=== PATIENT | female | born 2000 | race Hispanic/Latino ===

== ENCOUNTER → 2023-11-04 11:42 | Outpatient (CLI) | payer BC, SELFPAY ==
--- NOTE | 2023-11-04 11:43 | DI.US.S_ITS ---
PROCEDURE: US PELVIC COMPLETE INDICATIONS: Pelvic pain/hx PCOS TECHNIQUE: Real-time scanning was performed of the pelvic organs, with image documentation. Additional endovaginal scanning was necessary due to incomplete visualization of the adnexal and endometrial structures by transabdominal scanning. COMPARISON: None. FINDINGS: Uterus: Uterus is anteverted and normal in size at 8.2 x 4.5 x 6.0 cm. The myometrium is homogeneous. The endometrium measures 16 mm combined thickness. Mild vascularity is noted within the endometrium. Ovaries: The right ovary measures 3.8 x 2.9 x 2.6 cm, with a calculated ovarian volume of 15 cc. Collapsing follicle within the right ovary measuring 1.2 cm. The left ovary measures 4.4 x 3.0 x 2.0 cm, with a calculated ovarian volume of 13.8 cc. Left para ovarian simple cyst measuring 1.2 cm. . Greater than 12 follicles can be seen in each ovary. No adnexal masses are seen. Other: No pathologic free abdominal or pelvic fluid. IMPRESSION: The endometrium is prominent measuring 16 mm. Mild vascularity is noted within the endometrium, nonspecific. Consider short-term follow-up ultrasound. Greater than 12 sub-5 mm follicular cysts bilaterally which can be associated with polycystic ovarian morphology. Collapsing follicle in the right ovary measuring 1.2 cm. Left para ovarian simple cyst measuring 1.2 cm. We strive to produce accurate, complete, and clear reports of imaging services. To assist us in improving patient care, this report was composed using standard report templates and voice recognition software. Therefore, it may contain abnormal punctuation, insertions and/or omissions. Occasional wrong-word or sound-alike substitutions may occur. Though we review the report and make efforts to correct it, we do recommend that the report be read carefully in proper context to recognize any text inaccuracies. Dictated by: Andre Zaldivar M.D. on 11/04/2023 at 14:06 Approved by: Andre Zaldivar M.D. on 11/04/2023 at 14:14
== END ==
PROVIDERS: Referring Provider Student in an Organized Health Care Education/Training Program; Visit Provider Student in an Organized Health Care Education/Training Program
DX: N83.292 Other ovarian cyst, left side (principal); R10.2 Pelvic and perineal pain; Z87.42 Personal history of other diseases of the female genital tract
CPT/HCPCS: 76830; 76856

== ENCOUNTER → 2023-12-02 09:31 | Outpatient (CLI) | payer BC, SELFPAY ==
[2023-12-02 11:13] LABS: HCG Quantitative /Beta subunit 90585 mIU/mL
== END ==
PROVIDERS: Referring Provider Student in an Organized Health Care Education/Training Program; Visit Provider Student in an Organized Health Care Education/Training Program
DX: Z32.01 Encounter for pregnancy test, result positive (principal)
CPT/HCPCS: 36415; 84702

== ENCOUNTER → 2023-12-05 15:22 | Outpatient (CLI) | payer BC, SELFPAY ==
--- NOTE | 2023-12-05 15:23 | DI.US.S_ITS ---
PROCEDURE: US OB <= 14 WEEKS FETUS INDICATIONS: dating of , unknown LMP OUTSIDE/PRIOR DATING DATA: Last menstrual period (LMP): Unknown. LMP-based estimated date of delivery (MARISSA): Unknown. First dating scan (date and location): 12/05/2023. Estimated date of delivery (MARISSA) from first dating scan: 07/09/2024. The calculations are made using the ultrasound MARISSA of 07/09/2024. TECHNIQUE: Real-time scanning was performed of the fetus and maternal pelvic organs, with image documentation. COMPARISON: None. FINDINGS: Embryo: 2.4 cm, 9 weeks 0 days Heart rate: 169 Maternal organs: Ovaries are unremarkable. IMPRESSION: Living early 1st trimester intrauterine with crown-rump length and heartbeat measuring 9 weeks 0 days. We strive to produce accurate, complete, and clear reports of imaging services. To assist us in improving patient care, this report was composed using standard report templates and voice recognition software. Therefore, it may contain abnormal punctuation, insertions and/or omissions. Occasional wrong-word or sound-alike substitutions may occur. Though we review the report and make efforts to correct it, we do recommend that the report be read carefully in proper context to recognize any text inaccuracies. Dictated by: Jim Smith M.D. on 12/06/2023 at 12:05 Approved by: Jim Smith M.D. on 12/06/2023 at 12:06
== END ==
PROVIDERS: Referring Provider Student in an Organized Health Care Education/Training Program; Visit Provider Student in an Organized Health Care Education/Training Program
DX: Z32.01 Encounter for pregnancy test, result positive (principal); Z3A.09 9 weeks gestation of pregnancy
CPT/HCPCS: 76801

== ENCOUNTER → 2024-01-02 14:20 | Outpatient (CLI) | payer BC, SELFPAY ==
[2024-01-02 14:59] LABS: Add Manual Diff / Slide Review NO; Basophils Absolute Auto 0 /uL (0-100); Basophils Percent Auto 0.2 % (0-2); Eosinophils Absolute Auto 0 /uL (0-450); Eosinophils Percent Auto 0.2 % (2-4); Hematocrit 42.1 % (36-46); Hemoglobin 14.2 g/dL (12.0-16.0); Lymphocytes Absolute Auto 2400 /uL (1100-4500); Lymphocytes Percent Auto 28.4 % (25-40); Mean Corpuscular HGB Conc 33.7 % (30-36); Mean Corpuscular Hemoglobin 29.8 PG (26-34); Mean Corpuscular Volume 88.3 fL (80-100); Monocytes Absolute Auto 600 /uL (0-900); Monocytes Percent Auto 6.9 % (3-14); Neutrophils Absolute Auto 5500 /uL (1500-7000); Neutrophils Percent Auto 64.3 % (50-75); Platelet Count 258 X10^3/uL (150-400); Red Blood Cell Count 4.77 X10^6/uL (4.0-5.2); Red Cell Distribution Width 13.2 % (11.6-14.8); White Blood Cell Count 8.6 X10^3/uL (4.5-11.0)
== END ==
LOC: LAB 14:21
PROVIDERS: Referring Provider Student in an Organized Health Care Education/Training Program; Visit Provider Student in an Organized Health Care Education/Training Program
DX: Z34.01 Encounter for supervision of normal first pregnancy, first trimester (principal); E28.2 Polycystic ovarian syndrome
CPT/HCPCS: 36415; 80055; 83036; 86787; 86803; 86850; 86900; 86901; 87077; 87086; 87389

== ENCOUNTER → 2024-01-27 15:08 | Outpatient (CLI) | payer OTHER, MEDICAID, SELFPAY ==
[2024-01-29 20:14] LABS: AFP Value 44.8 ng/mL (.); Gest Age on Col Date 16.6 weeks (.); Gestational Age EDD (.); Insulin Dep Diabetes No (.); OSBR Risk 1IN 9231 (.); Results Report (.); Test Results *Screen Negative* (.)
[2024-01-30 11:46] LABS: PDF SCANNED
== END ==
PROVIDERS: PCP Internal Medicine; Referring Provider Student in an Organized Health Care Education/Training Program; Visit Provider Student in an Organized Health Care Education/Training Program
DX: Z34.02 Encounter for supervision of normal first pregnancy, second trimester (principal); Z36.0 Encounter for antenatal screening for chromosomal anomalies; Z3A.16 16 weeks gestation of pregnancy
CPT/HCPCS: 36415; 82105

== ENCOUNTER → 2024-02-27 12:31 | Outpatient (CLI) | payer OTHER, SELFPAY ==
--- NOTE | 2024-02-27 12:32 | DI.US.S_ITS ---
PROCEDURE: US OB >= 14 WEEKS FETUS INDICATIONS: 20 week anatomy scan OUTSIDE/PRIOR DATING DATA: Last menstrual period (LMP): Unknown LMP-based estimated date of delivery (MARISSA): Unknown. First dating scan (date and location): 12/05/2023. Estimated date of delivery (MARISSA) from first dating scan: 07/10/2023. The calculations are made using the ultrasound MARISSA of 07/10/2023. TECHNIQUE: Real-time scanning was performed of the fetus, with image documentation and biometric measurements. Endovaginal scanning: Not performed COMPARISON: 12/05/2023. FINDINGS: General: A single living intrauterine gestation is present. Presentation: Breech. Placenta: Placental position is anterior , without previa. Amniotic fluid index: 17.9 cm, normal range is 5-24 cm. Single deepest vertical pocket is 6.1 cm. heart rate: 150 beats per minute. Maternal cervical canal: 3.5 cm long. Normal lower limit is 2.5 cm. biometrics: Biparietal diameter: 4.9 cm, 20 weeks 6 days Head circumference: 18.5 cm, 20 weeks 6 days Abdominal circumference: 16.6 cm, 21 weeks 4 days Femur length: 3.4 cm, 20 weeks 5 days Clinically estimated gestational age: 21 weeks 0 days Composite gestational age from present scan: 21 weeks 0 days Estimated weight and percentile: 405 g, 55th percentile Anatomic survey: Neuro: Ventricles are non-dilated at less than 10 mm. Cisterna magna is normal at 3-11 mm. Cerebellum is normal in size and morphology. Nuchal skin fold: Normal at less than 6 mm between 14-21 weeks gestational age. Face: Nose and lips, facial profile are normal. Spine: No evidence for spina bifida. Heart: 4-chambered heart is present, with normal ventricular outflow tracts. Diaphragm: Diaphragm is intact. Stomach: Left-sided stomach is present. Kidneys: No hydronephrosis. Normal is less than 5 mm in 2nd trimester, less than 7 mm in 3rd trimester. Cord: 3-vessel cord has orthotopic insertion. Bladder: Normal in size. Extremities: All 4 extremities identified. IMPRESSION: 1. Living 2nd trimester intrauterine with no sonographic evidence of complications. Normal interval growth. 2. Normal 2nd trimester anatomy study. We strive to produce accurate, complete, and clear reports of imaging services. To assist us in improving patient care, this report was composed using standard report templates and voice recognition software. Therefore, it may contain abnormal punctuation, insertions and/or omissions. Occasional wrong-word or sound-alike substitutions may occur. Though we review the report and make efforts to correct it, we do recommend that the report be read carefully in proper context to recognize any text inaccuracies. Dictated by: Jim Smith M.D. on 02/27/2024 at 21:16 Approved by: Jim Smith M.D. on 02/27/2024 at 21:19
== END ==
LOC: US 12:32
PROVIDERS: PCP Internal Medicine; Referring Provider Student in an Organized Health Care Education/Training Program; Visit Provider Student in an Organized Health Care Education/Training Program
DX: Z34.02 Encounter for supervision of normal first pregnancy, second trimester (principal); Z3A.21 21 weeks gestation of pregnancy
CPT/HCPCS: 76811

== ENCOUNTER → 2024-04-02 10:27 | Outpatient (CLI) | payer OTHER, SELFPAY ==
[2024-04-02 12:13] LABS: Hemoglobin 12.6 g/dL (12.0-16.0)
[2024-04-02 12:47] LABS: GTT (PREG) 1 Hour PP 50gm Dose 78 mg/dL (76-139)
== END ==
PROVIDERS: PCP Internal Medicine; Referring Provider Student in an Organized Health Care Education/Training Program; Visit Provider Student in an Organized Health Care Education/Training Program
DX: Z13.0 Encounter for screening for diseases of the blood and blood-forming organs and certain disorders involving the immune mechanism (principal); Z13.1 Encounter for screening for diabetes mellitus
CPT/HCPCS: 36415; 82950; 85014; 85018

== ENCOUNTER → 2024-06-15 10:36 | Outpatient (CLI) | payer OTHER, SELFPAY ==
[2024-06-16 10:48] LABS: Strep Grp B PCR NEG for Grp B Strep
== END ==
PROVIDERS: PCP Internal Medicine; Visit Provider Student in an Organized Health Care Education/Training Program
DX: Z36.85 Encounter for antenatal screening for Streptococcus B (principal)
CPT/HCPCS: 87653

== ENCOUNTER 2024-06-23 08:33 | Observation (INO) | payer OTHER, SELFPAY ==
--- NOTE | 2024-06-23 10:41 | PM.OBTRLD ---
Visit Information Visit Information Date of evaluation: 06/23/24 Primary OB Provider: Haily Gutierrez Reason for Evaluation: Yes rule out labor PFSH Medical History (Updated 06/23/24 @ 10:43 by Haily Gutierrez DO) PCOS (polycystic ovarian syndrome) Surgical History (Updated 12/11/23 @ 11:01 by Kim Medrano, RN) [place] teeth extracted Family History (Updated 12/11/23 @ 11:03 by Kim Medrano, RN) Sister Down syndrome Grandmother Diabetes mellitus Social History marital status: unmarried,single number of children: 0 household members: family (father and uncle) lives independently: Yes caregiver/support person: No housing: house pets and animals: Yes (guinea pigs) education level: college (some college) occupational status: employed (counseling program leader) current occupational exposures/hazards: No special fran needs: No travel history: over 6 months ago seatbelt use: always water heater temp set < 120 deg: Yes working smoke detector in home: Yes fire extinguisher in home: Yes carbon monox detector in home: Yes firearms in home: Yes firearms unloaded and locked: No do you feel safe at home: Yes second hand exposure: No alcohol intake: former (~1-2/week when not ) substance use type: marijuana during the past year weight has: decreased > 10 lbs well-balanced diet: about half the time daily servings fruits/ve-4 caffeine: Yes (single cup coffee in AM) Type(s) of exercise: walking Evaluation Evaluation Baseline heart rate: 140 Variability: Moderate (11-25) monitor accelerations: Present Monitor Decelerations: Periodic Contraction Frequency (minutes): 4 Status: Category ll Cervical dilation (cm): 0 Cervical effacement (%): 80 station: -3 Comments: prolonged monitoring after decel noted at 0900; category I tracing for 1hr after decel Diagnosis, Plan/Disposition Final Diagnosis (1) False labor after 37 weeks of gestation without delivery: Status: Acute Plan/Disposition Plan: Patient was observed for 2 hours, with no cervical change. The heart rate tracing was category 1 for the last hour of her monitoring. -patient given labor precautions -follow up in the office as scheduled OB Disposition: home
== END 2024-06-23 10:55 | disposition home or self-care (01) ==
PROVIDERS: Admitting Provider Student in an Organized Health Care Education/Training Program; Referring Provider Student in an Organized Health Care Education/Training Program; Visit Provider Student in an Organized Health Care Education/Training Program
DX: O47.1 False labor at or after 37 completed weeks of gestation (principal); Z3A.37 37 weeks gestation of pregnancy
CPT/HCPCS: 59025; 59050; 84112; G0378; G0379

== ENCOUNTER 2024-06-30 02:39 | Inpatient (IN) | payer OTHER, SELFPAY ==
[2024-06-30 03:43] VITALS: BP 125/78
[2024-06-30 03:55] LABS: Add Manual Diff / Slide Review NO; Basophils Absolute Auto 0 /uL (0-100); Basophils Percent Auto 0.3 % (0-2); Eosinophils Absolute Auto 0 /uL (0-450); Eosinophils Percent Auto 0.2 % (2-4); Hematocrit 41.5 % (36-46); Hemoglobin 14.1 g/dL (12.0-16.0); Lymphocytes Absolute Auto 2700 /uL (1100-4500); Mean Corpuscular Hemoglobin 29.1 PG (26-34); Mean Corpuscular Volume 85.6 fL (80-100); Monocytes Absolute Auto 700 /uL (0-900); Monocytes Percent Auto 6.6 % (3-14); Neutrophils Absolute Auto 7600 /uL (1500-7000); Neutrophils Percent Auto 68.9 % (50-75); Platelet Count 212 X10^3/uL (150-400); Red Blood Cell Count 4.85 X10^6/uL (4.0-5.2)
--- NOTE | 2024-06-30 04:26 | PM.OBHP.IH.1 ---
OB HPI Date/Time Date of admission: 06/30/24 Date Patient Seen: 06/30/24 Time Patient Seen: 04:27 History of Present Condition Chief complaint: labor MARISSA Calculator Estimated Delivery Date Method Current WG Current Estimate 07/09/24 Ultrasound #1 38w 5d : 1 Para: 0 care: good care, initiated at week # (9), number of visits (9) and pounds weight gain (24) Dating criteria OB: LMP confirmed by 1st trimester US Ultrasounds: normal mid trimester US Obstetrical complications: none Medical complications OB: none Preadmission Labs Last OB Lab Results: Blood Type O Positive 06/30/24 03:40 Antibody Screen Negative 06/30/24 03:40 Hct 41.5 % (36-46) 06/30/24 03:40 Hgb 14.1 g/dL (12.0-16.0) 06/30/24 03:40 Hep Bs Antigen Negative s/c (NEGATIVE) 01/02/24 14:30 Hepatitis C Antibody Negative s/c (NEGATIVE) 01/02/24 14:30 Rubella Antibody 27.7 IU/mL (>15) 01/02/24 14:30 VZV IgG Antibody Reactive (Non Reactive) 01/02/24 14:30 Glucose 1 Hr 50 gm 78 mg/dL (76-139) 04/02/24 11:37 Hemoglobin A1c 5.0 % (4.0-6.0) 01/02/24 14:30 Group B Strep (PCR) Neg for grp b strep 06/15/24 10:36 -: Chlamydia screen: negative, Gonorrhea screen: negative and Urine: negative Genetic Screens: Cell-free DNA: Normal and Alpha-fetoprotein: Normal External Labs -: Urine: negative Prior (ies) Hx # Term Pregnancies: 0 Hx # Pregnancies: 0 Number of Living Children: 0 Multiple births: 0 Spontaneous abortions: 0 Ectopic pregnancies: 0 Elective abortions: 0 Evaluation Evaluation Baseline heart rate: 140 Variability: Moderate (11-25) monitor accelerations: Present Contraction Frequency (minutes): 3 Uterine Contraction Intensity: Strong/Firm Status: Category ll Dilation (cm): 9 Effacement (%): 90 station: -3 Position of cervix: anterior Consistency: soft Comments: Patient on arrival had an emesis with a 9 minute deceleration. heart tones recovered and appeared normal. The patient had epidural placed and again had emesis . The heart tones decreased again to 60 with slow recovery that lasted 13 minutes. During that time patient was given ephedrine, subQ terbutaline, IV fluids. Patient had progressed rapidly from 5 cm on admit. Likely the patient has a vasovagal reaction with her emesis that affected the baby's heartbeat. Will monitor closely for additional decelerations and proceed with section rather than vaginal delivery if it persists. [facility] Medical History (Updated 06/23/24 @ 10:43 by Haily Gutierrez DO) PCOS (polycystic ovarian syndrome) Surgical History (Updated 12/11/23 @ 11:01 by Kim Medrano RN) [place] teeth extracted Family History (Updated 12/11/23 @ 11:03 by Kim Medrano RN) Sister Down syndrome Grandmother Diabetes mellitus Social History marital status: unmarried,single number of children: 0 household members: family (father and uncle) lives independently: Yes caregiver/support person: No housing: house pets and animals: Yes (guinea pigs) education level: college (some college) occupational status: employed (artillery or naval gunfire observer) current occupational exposures/hazards: No special fran needs: No travel history: over 6 months ago seatbelt use: always water heater temp set < 120 deg: Yes working smoke detector in home: Yes fire extinguisher in home: Yes carbon monox detector in home: Yes firearms in home: Yes firearms unloaded and locked: No do you feel safe at home: Yes Smoking Status: Never smoker second hand exposure: No alcohol intake: former (~1-2/week when not ) substance use type: marijuana during the past year weight has: decreased > 10 lbs well-balanced diet: about half the time daily servings fruits/ve-4 caffeine: Yes (single cup coffee in AM) Type(s) of exercise: walking Meds Home Medications and Allergies Home Medications Medication Instructions Recorded Confirmed Type vitamin-ferrous sulfate 1 tab PO DAILY 12/11/23 06/30/24 History 27 mg iron-folic acid 0.8 mg tablet Allergies Allergy/AdvReac Type Severity Reaction Status Date / Time No Known Drug Allergies Allergy Verified 06/30/24 03:45 Review of Systems Review of Systems Narrative: Good movement. No leakage of fluid. No headaches, scotomata, epigastric pain. OB Exam Vital signs Blood Pressure: 125/78 Pulse Rate: 66 Temperature: 98.2 F Narrative Exam Narrative: HEENT exam within normal limits. Lungs are clear to auscultation percussion. Heart is regular rate and rhythm no S3-S4 murmurs. No thyromegaly. Abdomen is gravid. Fetus is vertex. Extremities without edema and nontender. Objective Labs 06/30/24 03:40 Labs: Laboratory Results - last 24 hr 06/30/24 03:40 WBC 11.0 RBC 4.85 Hgb 14.1 Hct 41.5 MCV 85.6 MCH 29.1 MCHC 34.0 RDW 13.0 Plt Count 212 Neut % (Auto) 68.9 Lymph % (Auto) 24.0 L [place] % (Auto) 6.6 Eos % (Auto) 0.2 L Baso % (Auto) 0.3 Neut # (Auto) 7600 H Lymph # (Auto) 2700 [place] # (Auto) 700 Eos # (Auto) 0 Baso # (Auto) 0 Assessment and Plan Assessment and Plan Assessment and Plan narrative: 23-year-old EDC 07/09/2024 at 30 weeks 5 days arrived on Labor and delivery in active labor. Patient is requesting epidural. Anticipate vaginal delivery. Patient with 2nd episode of deceleration with emesis. heart tones now category 1. Time-Based Coding :: [TOTAL MINUTES] spent with patient and on the chart (including review of chart, obtaining history, exam, reviewing outside data, placing orders, documenting exam and treatment plan, and counseling patient) on [DATE].
--- NOTE | 2024-06-30 05:09 | PM.AN.REGBLK ---
Regional Block Pre-procedure Procedure: Continuous Lumbar Epidural for L&D Attending OB provider: Haily Gutierrez PMH/ROS narrative: Healthy G1 presenting in spontaneous active labor requesting SERENA for labor pain. SROM shortly after arriving. Quickly progressed from 5 to 8 cm in first hour on the unit. PSH/Anesthesia history narrative: See pre-anesthesia eval form. Exam narrative: See pre-anesthesia eval form. ASA Class: II Labs: Hct 41.5 % (36-46) 06/30/24 03:40 Plt Count 212 X10^3/uL (150-400) 06/30/24 03:40 Medications: Current Medications Generic Name Dose Route Start Last Admin Trade Name Freq PRN Reason Stop Dose Admin Butorphanol Tartrate 0.5 mg 06/30/24 05:07 Butorphanol 1 Mg/Ml Vial IV 07/01/24 05:08 Q3HR PRN PRURITUS Carboprost Tromethamine 250 mcg 06/30/24 03:13 Carboprost 250 Mcg/Ml Ampul IM Q90M PRN Bleeding Diphenhydramine HCl 25 mg 06/30/24 05:07 Diphenhydramine 50 Mg/Ml Vial IV 07/01/24 05:08 Q3HR PRN PRURITUS Lactated Ringer's 1,000 mls @ 100 mls/hr 06/30/24 03:15 Lactated Ringers IV 06/30/24 13:14 CONT JASMEET Oxytocin/Lactated Ringer's 30 unit in 500 mls @ 200 mls/hr 06/30/24 03:13 Oxytocin Premix IV CONT PRN Bleeding Protocol Tranexamic Acid 1,000 mg/ 100 mls @ 600 mls/hr 06/30/24 03:13 Sodium Chloride IV NOW PRN Bleeding Lidocaine HCl 20 ml 06/30/24 03:13 Lidocaine 1% 20 Ml INJ INTRA-OP PRN Post Delivery Methylergonovine Maleate 0.2 mg 06/30/24 03:13 Methylergonovine 0.2 Mg Tablet PO Q6HR PRN Heavy Bleeding Methylergonovine Maleate 0.2 mg 06/30/24 03:13 Methylergonovine 0.2 Mg/Ml Vial IM NOW PRN Bleeding Metoclopramide HCl 10 mg 06/30/24 05:07 Metoclopramide 10 Mg/2 Ml Inj IV 07/01/24 05:07 Q4H PRN Nausea Mineral Oil 30 ml 06/30/24 03:13 Mineral Oil 30 Ml Udc TOP PRN PRN Version Misoprostol 800 mcg 06/30/24 03:13 Misoprostol 200 Mcg Tablet WV NOW PRN Bleeding Misoprostol 400 mcg 06/30/24 03:13 Misoprostol 200 Mcg Tablet SL NOW PRN Bleeding Nalbuphine HCl 5 mg 06/30/24 05:07 Nalbuphine 20 Mg/Ml Ampul IV Q6H PRN PRURITIS Naloxone HCl 0.2 mg 06/30/24 03:13 Naloxone 0.4 Mg/Ml Vial IV Q2MIN PRN Opiate Reversal Naloxone HCl 0.4 mg 06/30/24 05:07 Naloxone 0.4 Mg/Ml Vial IV Q2MIN PRN Opiate Reversal Ondansetron HCl 4 mg 06/30/24 05:07 Ondansetron 4 Mg/2 Ml Inj IV 07/01/24 05:08 Q6HR PRN Nausea Oxytocin 10 unit 06/30/24 03:13 Oxytocin 10 Unit/Ml Vial IM NOW PRN Bleeding Allergies: Allergies Allergy/AdvReac Type Severity Reaction Status Date / Time No Known Drug Allergies Allergy Verified 06/30/24 03:45 Procedure Insertion date: 06/30/24 Insertion time: 04:47 Prep/Local: 1% lidocaine (3mL. CHG to back for skin prep.) Interspace: L3/4 Patient position: sitting Needle: 18 gauge Hustead (27g Pencan through hustead for dural puncture. Positive pop at dural layer however no CSF return.) Loss of resistance with: saline MALINA at (cm): 6 Catheter placed at SKIN (cm): 12 Catheter in SPACE (cm): 6 Insertion: No CSF, Yes Blood, No Paresthesia with insertion, No Paresthesia with injection and No Test dose reaction Initial Medications TEST DOSE time: 04:48 TEST DOSE: 1.5% lidocaine with epinephrine 1:200k (mL): 3 BOLUS DOSE time: 04:50 BOLUS DOSE (mL): 7 BOLUS DOSE med: 0.25% bupivacaine Infusion INFUSION: 0.125% bupivacaine and with fentanyl 2 mcg/mL Initial rate (mL/hr): 8 Subsequent interventions: 0508 - Pt nauseated and vomiting. BP 90/55. Treated with 15mg IV ephedrine and 4mg IV zofran with immediate improvement in BP and nausea. Pt having strong contractions and decelerations at this time. To slow down contractions RN administered 0.[address] Morrison. Improvement in HR within several minutes. Per RN patient had a vomiting episode upon arrival to the unit which also was accompanied by decelerations. Post-procedure Anesthesia date START: 06/30/24 Anesthesia time START: 04:37 Anesthesia date END: 06/30/24 Anesthesia time END: 07:29 Post-procedure Anesthesia Assessment: Yes CV function: HR/BP stable, Yes Resp function: RR/sat/airway adequate, Yes Post-op hydration adequate, Yes Pain control adequate, Yes Nausea & vomiting absent, Yes Temperature > 36 C, Yes Mental status appropriate and No Anesthesia complications
[2024-06-30] MEDS: TERBUTALINE 1 MG/ML VIAL 0.25 MG SUBCUT (05:15)
[2024-06-30 05:36] VITALS: BP 125/78; PULSE 66; TEMP 36.8
--- NOTE | 2024-06-30 07:51 | PM.OBPRVD ---
Labor & Delivery Delivery date: 06/30/24 Delivery Time: 07:29 Intrapartal Events: Extended Bradycardia (With emesis x2, 9 and 13 minutes) Cervical ripening method: none Induction method: none Delivery monitor: external FHT and external uterine Route of delivery: L&D Laceration Description: Vaginal - 2nd Degree and Labial (Right superficial did not require suturing) Delivery repair: chromic (3 0) Estimated blood loss (mL): 150 Anesthesia Type: Epidural Narrative: Patient arrived on Labor and delivery in active labor. Shortly after arrival she had emesis and a 9 minute deceleration that recovered with the reactive category 1 tracing. Patient requested an epidural. Shortly after placement of the epidural the patient had another episode of emesis with deceleration that lasted for 13 minutes. The baby recovered and strip became reactive again. She was complete and began pushing. Some variable decelerations with pushing. The patient delivered spontaneously, over an intact perineum. The viable male was placed on the maternal abdomen. After cord stopped pulsating the cord was clamped, cut, and cord bloods obtained. The placenta delivered spontaneously, intact, with 3 vessels. The patient had no cervical tears a second-degree vaginal perineal tear was repaired in the usual 2 layer fashion with 3-0 chromic suture. A first-degree right labial tear did not require suturing. Estimated blood loss 150 cc. Both baby and mother doing well. Routine care. [place] Baby 1: gender: Male Presentation: vertex Position: Right Occiput Anterior Placenta delivery description: Spontaneous Cord Vessel Description: 3 Vessels score (1 min): 9 score (5 min): 9 Plan for aftercare: Routine care
[2024-06-30] MEDS: METHYLERGONOVINE 0.2 MG/ML VIAL IM (08:43)
[2024-06-30] MEDS: WITCH HAZEL/GLYCERIN PADS 1 EACH TOP (11:55)
[2024-06-30] MEDS: DERMOPLAST SPRAY 20% 60 ML 1 SPRAY TOP (11:55)
[2024-07-01 06:42] LABS: Add Manual Diff / Slide Review NO; Basophils Absolute Auto 100 /uL (0-100); Basophils Percent Auto 0.5 % (0-2); Eosinophils Absolute Auto 0 /uL (0-450); Eosinophils Percent Auto 0.3 % (2-4); Hematocrit 35.5 % (36-46); Hemoglobin 12.1 g/dL (12.0-16.0); Lymphocytes Absolute Auto 3000 /uL (1100-4500); Lymphocytes Percent Auto 26.3 % (25-40); Mean Corpuscular HGB Conc 34.1 % (30-36); Mean Corpuscular Hemoglobin 29.3 PG (26-34); Monocytes Absolute Auto 900 /uL (0-900); Monocytes Percent Auto 8.2 % (3-14); Neutrophils Absolute Auto 7500 /uL (1500-7000); Neutrophils Percent Auto 64.7 % (50-75); Platelet Count 168 X10^3/uL (150-400); Red Blood Cell Count 4.13 X10^6/uL (4.0-5.2); Red Cell Distribution Width 13.4 % (11.6-14.8); White Blood Cell Count 11.6 X10^3/uL (4.5-11.0)
--- NOTE | 2024-07-01 09:18 | P.DS_ITS ---
Discharge Providers Provider Date of admission: 06/30/24 02:39 Discharge Date: 07/01/24 Primary care physician: Doctor Gwendolyn MD Consults: 06/30/24 03:13 Consult to Anesthesiology Urgent Comment: Consulting Provider: Anesthesiologist Reason for consultation: Epidural 07/01/24 07:49 Consult to Scientific Programmer Analyst Routine Comment: Discharge provider: Irlanda Moore MD Summary Hospital Course Date Patient Seen: 07/01/24 Time Patient Seen: 07:20 Hospital Course: 23yo G1 at 38w5d presented to facility in active term labor. Patient had rapid progression of cervical dilation, CEFM during this time with intermittent periods of prolonged bradycardia secondary to maternal emesis/vasovagal reaction that resolved with routine resuscitation efforts. Patient had epidural placed for analgesia and subsequently progressed to complete dilation. Second stage uncomplicated, LBMI 9/9. Second degree perineal laceration repaired in standard fashion. Uncomplicated course, maternal request for dc to home PPD1 meeting all discharge milestones. exclusively. Declines contraception, precautions reviewed. Peripartum Data Delivery Method: Natural Vaginal Laceration Description: Perineal - 2nd Degree Episiotomy description: None complications: none [place] 1: Gender: Male Disposition of : home Status at Discharge Cognitive/behavioral status at discharge: oriented Functional status at discharge: independent ambulation Overall status at discharge: patient is back to baseline Time Spent with Patient Time attestation: Total time spent providing and/or coordinating discharge services: Time spent: Less than 30 minutes Objective Labs 07/01/24 06:31 Labs: Laboratory Results - last 24 hr 07/01/24 06:31 WBC 11.6 H RBC 4.13 Hgb 12.1 Hct 35.5 L MCV 86.0 MCH 29.3 MCHC 34.1 RDW 13.4 Plt Count 168 Neut % (Auto) 64.7 Lymph % (Auto) 26.3 [place] % (Auto) 8.2 Eos % (Auto) 0.3 L Baso % (Auto) 0.5 Neut # (Auto) 7500 H Lymph # (Auto) 3000 [place] # (Auto) 900 Eos # (Auto) 0 Baso # (Auto) 100 Exam Vital Signs (past 8 hours): maternal VS reviewed in OBIX, stable/afebrile Const General: cooperative, healthy appearing and comfortable Nutritional Appearance: average body habitus Orientation: alert, awake and oriented x3 Limitations: mental status not altered Resp Effort & Inspection: normal respiratory effort and able to speak in complete sentences Cardio Pulses: normal peripheral pulses GI Inspection: normal to inspection Palpation: soft Other: fundus firm << umb, non-tender Other: deferred Skin General: no rashes or lesions noted Neuro General: patient alert, patient awake and patient oriented x3 Extrem General: normal to inspection Psych Mental Status: mental status grossly normal Judgment: judgment good Discharge Plan Discharge Plan Patient Disposition: Home Provider Discharge Comment: Nothing in the vagina for 4 weeks. No tampons, intercourse, swimming in fresh water/pools/hot tubs. Tub baths are ok if the tub is cleaned well first. Discharge orders & Medications Prescriptions: New acetaminophen 325 mg Tablet 650 mg PO Q6HR PRN (Reason: Pain, Mild (1-3)) Qty: 30 0RF ibuprofen 600 mg Tablet 600 mg PO Q6HR PRN (Reason: Pain, Mild (1-3)) Qty: 30 0RF Purelan Cream 1 applic topical PRN PRN (Reason: Tenderness) Qty: 7 0RF Continued vit-ferrous sulfat-FA 27 mg iron- 0.8 mg tablet 1 tab PO DAILY Follow up/Referrals: Doctor Snow MD [Primary Care Provider] - Diet/Activity/Treatments Diet: Diet as Tolerated and Regular Skin/Wound/Dressing Care Report to your healthcare provider any signs of infection, such as:: chills, fever, increased pain and unusual drainage Visit Report/Discharge Packet Stand Alone Forms: Patient Portal/API, Stroke Signs & Symptoms Discharge Data Primary Care Provider: Doctor Gwendolyn
[2024-07-01 15:00] VITALS: BP 125/78; PULSE 66; RESP 15; TEMP 36.8
== END 2024-07-01 15:00 | disposition home or self-care (01) | DRG 560 ==
PROVIDERS: Specialist; Admitting Provider Family Medicine; Referring Provider Family Medicine; Visit Provider Family Medicine
DX: O76 Abnormality in fetal heart rate and rhythm complicating labor and delivery (principal); Z3A.38 38 weeks gestation of pregnancy; Z37.0 Single live birth; O70.1 Second degree perineal laceration during delivery
CPT/HCPCS: 36415; 59050; 59409; 85025; 86850; 86900; 86901; G0379; J2210; J2405